=== PATIENT | female | born 1965 | race Caucasian/White ===

== ENCOUNTER → 2024-05-12 11:00 | Outpatient (REF) | payer BC, SELFPAY | LOC: WDC 11:00 | PROVIDERS: ATTENDING PHYSICIAN Physician Assistant | DX: Z12.31 Encounter for screening mammogram for malignant neoplasm of breast (principal) | CPT/HCPCS: 77063; 77067 ==

== ENCOUNTER 2025-04-29 06:20 | Day surgery (SDC) | payer OTHER, SELFPAY | END 2025-04-29 13:24 | disposition home or self-care (01) | LOC: GI 06:20 | PROVIDERS: ATTENDING PHYSICIAN Specialist | DX: Z12.11 Encounter for screening for malignant neoplasm of colon (principal); K57.10 Diverticulosis of small intestine without perforation or abscess without bleeding; K63.89 Other specified diseases of intestine; K57.30 Diverticulosis of large intestine without perforation or abscess without bleeding | CPT/HCPCS: 45380; 88305 ==

== ENCOUNTER → 2025-05-17 19:15 | Outpatient (REF) | payer OTHER, SELFPAY | LOC: WDC 19:15 | PROVIDERS: ATTENDING PHYSICIAN Physician Assistant | DX: Z12.31 Encounter for screening mammogram for malignant neoplasm of breast (principal) | CPT/HCPCS: 77063; 77067 ==